=== PATIENT | female | born 1990 | race Caucasian/White ===

== ENCOUNTER 2019-11-29 15:19 | Emergency (ER) | payer OTHER, SELFPAY ==
[2019-11-29 15:33] VITALS: BP 132/80; PULSE 92; RESP 16; TEMP 36.8; O2SAT 100
--- NOTE | 2019-11-29 15:41 | ED.SKABFB ---
HPI - Skin/Abscess/Foreign Bdy General Chief complaint: Skin/Abscess/Foreign Body Stated complaint: SKIN INFECTION Time Seen by Provider: 11/29/19 15:22 Source: patient Mode of arrival: ambulatory Limitations: no limitations History of Present Illness HPI narrative: 29-year-old female presents to urgent care for complaints of possible boil to her right axilla region for the past 2 to 3 days. Patient complains of multiple areas of redness, swelling and warmth to her right axilla region. Patient reports that she has had frequent boils in the past. Patient reports her last round of antibiotic was clindamycin 2 months ago. Patient denies fever, body aches, chills, nausea, vomiting or diarrhea. MD complaint: abscess/boil Onset (ago): day(s) (2) Location: RUE (right axilla ) Severity: mild Pain Consistency: constant Relieving factors: none Context: none Associated symptoms: denies other symptoms Treatments prior to arrival: none Related Data Home Medications Medication Instructions Recorded Confirmed amitriptyline 50 mg PO HS 09/15/19 09/15/19 dextroamphetamine-amphetamine 20 mg PO DAILY 09/15/19 09/15/19 [Adderall] spironolactone 50 mg PO BID 09/15/19 09/15/19 tramadol 50 mg PO Q4H PRN 09/15/19 09/15/19 Allergies Allergy/AdvReac Type Severity Reaction Status Date / Time latex Allergy Unknown rash Verified 10/29/17 21:20 naproxen Allergy Unknown gastritis Verified 10/29/17 21:20 Review of Systems Review of Systems: All systems reviewed & are unremarkable except as noted in HPI and below Constitutional: Constitutional: Denies chills, Denies fatigue, Denies fever(s) and Denies weakness Cardiovascular: Cardiovascular: Denies chest pain and Denies radiating jaw, neck or arm pain Gastrointestinal: Gastrointestinal: Denies abdominal pain, Denies diarrhea, Denies nausea and Denies vomiting Integumentary/Breasts: Skin/Breast: Reports as per HPI Comments: Multiple areas of redness, swelling and warmth to right axillary region Neurologic: Denies dizziness, Denies syncope and Denies focal weakness PMFSH Family History Family History Father Hypertension Mother Hypertension Family history of cardiovascular disease Grandparent Family history of cardiovascular disease Cerebrovascular accident Other Family history of hypercholesterolemia Social History Social History Smoking status: Smoker, status unknown Alcohol intake: current Exam Const: General: healthy appearing, no acute distress and alert Orientation/consciousness: patient oriented x3 Neck: Neck: normal visual inspection Resp: Effort & Inspection: normal respiratory effort Auscultation: clear to auscultation bilaterally Cardio: Rate: regular rate Rhythm: regular rhythm Heart sounds: no murmurs Skin: General skin exam: normal color, no jaundice and no pallor Rashes: no rashes Other: 3 areas measuring 1 cm each in size noted to right axilla region. Areas are erythematous and warm to touch. There is no fluctuance or induration noted. There is no bruising, streaking erythema or necrotic tissue noted Neuro: General: patient oriented x3 and moves all extremities Extrem: General: normal to inspection Psych: Mental Status: mental status grossly normal Affect: normal affect Attitude: cooperative Course Vital Signs Vital signs: Vital Signs Temperature 36.8 C 11/29/19 15:33 Pulse Rate 92 11/29/19 15:33 Respiratory Rate 16 11/29/19 15:33 Blood Pressure 132/80 11/29/19 15:33 Pulse Oximetry 100 11/29/19 15:33 Temperature 36.8 C 11/29/19 15:33 Pulse Rate 92 11/29/19 15:33 Respiratory Rate 16 11/29/19 15:33 Blood Pressure 132/80 11/29/19 15:33 Pulse Oximetry 100 11/29/19 15:33 MDM - Skin/Abscess/Foreign Bdy MDM Narrative Medical decision making narrative: Patient agrees to take antibiotic as
== END 2019-11-29 15:54 | disposition home or self-care (01) ==
PROVIDERS: Emergency Provider Nurse Practitioner Family; PCP Emergency Medicine
DX: L02.411 Cutaneous abscess of right axilla (principal)
CPT/HCPCS: 99213; G0463

== ENCOUNTER 2020-03-14 07:25 | Outpatient (CLI) | payer OTHER, SELFPAY ==
--- NOTE | ~2020-03-14 | XR_ITS ---
XR knee RT 3V DATE: 03/14/2020 07:55 INDICATION: Lateral right knee pain after running injury one month ago TECHNIQUE: 3 views COMPARISON: None FINDINGS: No fracture or dislocation or joint effusion. No periosteal reaction or bone destruction. J oint spaces are well preserved. No radiopaque intra-articular loose body or chondrocalcinosis. IMPRESSION: Normal examination Reviewed, dictated and finalized at location A. IMPRESSION: Normal examination
== END 2020-03-14 07:26 | disposition home or self-care (01) ==
LOC: ANHIMG 07:30
PROVIDERS: PCP Emergency Medicine; Visit Provider Emergency Medicine
DX: M25.561 Pain in right knee (principal)
CPT/HCPCS: 73562

== ENCOUNTER 2020-05-03 11:00 | Outpatient (RCR) | payer OTHER, SELFPAY ==
--- NOTE | 2020-04-01 10:30 | PTOPEVAL ---
PHYSICAL THERAPY EVALUATION AND PLAN OF CARE Thank you for referring Valentina Nash to [facility]. I recommend Valentina participate in physical therapy 1-2x/week for 4-8 weeks. Please review, sign, date and return this plan of care JAY. I agree with and certify that the following plan of care is medically necessary. Referring Physician Date Attending Provider: Kurt Cortés MD Evaluation Diagnosis right knee pain Onset 01/2020 Cause insidious Subjective Information Started to run and exercise outside (gyms closed due to COVID-19) starting in January and started to notice the right knee getting tight and sore. There is now some clicking and it does swell on occasion. She can no longer run or squat and stair climbing causes pain/clicking. Does feel as though she is overcompensating and is feeling tightness/soreness in the left achilles now. Feels as though her back is really sore this morning. Tries to do yoga, but states she feels like she cannot get her muscles to release Self Report Pain Assessment Spine, Lumbar Reported Pain Level 3 Pain Description Aching Right Knee(s) Reported Pain Level 0 Lumbar Flexion Active [place] with knee flexion due to hamstring tightness Lumbar Extension (0-40) 30 Lumbar rotation: left stiff compared to right Gross Lower Extremity Strength unilateral heel raises: R=12/20 L=12/20 Hip Strength Bilateral Hip Flexion Strength 5 Normal Hip Extension Strength 4 Good Hip Abduction Strength 4- Good - Hip Adduction Strength 3+ Fair + Knee Strength Right Knee Flexion Strength 5 Normal Knee Extension Strength 5 Normal Knee Strength Comments functional squat: thighs just less than parallel to floor with mild deviation to left Muscle Length Testing Moses Test Shortened Muscles Short (R) Iliopsoas,Short (L) Iliopsoas,Short (R) Rectus Femoris,Short (L) Rectus Femoris Piriformis w/Hip Flexion >90 Degrees (R) Mild Tightness,(L) Moderate Tightness Left Hamstring Length -30 Query Text:(90 - 90 Position) Right Hamstring Length -25 Query Text:(90 - 90 Position) 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
--- NOTE | 2020-04-16 08:53 | PCPTNOTE ---
Patient called & cancelled scheduled appointment this date due to having to work.
--- NOTE | 2020-05-09 10:47 | PCPTNOTE ---
Patient did not show up for scheduled appointment this date.
--- NOTE | 2020-05-23 08:46 | PCPTNOTE ---
PHYSICAL THERAPY DISCHARGE NOTICE Attending Provider: Kurt Cortés MD Patient:Valentina Nash Date of :1990 Valentina has not returned for any further treatments since 05/03/2020, therefore she will be discharged at this time. Patient?s initial visit was on 04/01/2020 09:00 and she attended a total of 7 visits. The goals have not been assessed. Thank you for referring this patient to [facility]. Please review, sign, date and return this discharge summary JAY. I have been updated about the patient's current status and I agree with discharge from the above service at this time. Referring Physician Date
== END 2020-05-23 11:34 | disposition home or self-care (01) ==
LOC: ANHPT 11:00
PROVIDERS: PCP Emergency Medicine; Visit Provider Emergency Medicine
DX: M25.561 Pain in right knee (principal)
CPT/HCPCS: 97110; 97140; 97161; 97162

== ENCOUNTER 2020-12-27 13:11 | Outpatient (CLI) | payer OTHER, SELFPAY ==
--- NOTE | ~2020-12-27 | XR_ITS ---
EXAMINATION: XR lumbar spine 2-3V EXAM DATE: 12/27/2020 13:35 INDICATION: Low back pain, muscle spasm. TECHNIQUE: Lumber spine frontal, lateral, lateral L5-S1 projections for interpretation. There is no prior study for comparison. FINDINGS: There is mild thoracolumbar dextrocurvature, probably mild scoliosis. The vertebral bodies are aligned in the AP dimension. Vertebral body and disc heights are well-maintained. There is mild lumbar facet arthropathy. IUD projecting over the pelvic inlet. Sacrum, sacroiliac joints, sacral arc uate lines are intact. IMPRESSION: 1. Mild thoracolumbar dextrocurvature. 2. Mild facet arthropathy. Reviewed, dictated and finalized at location A. ATIENT RECEPTIONIST
--- NOTE | ~2020-12-27 | XR_ITS ---
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 TECHNIQUE: Each hip imaged independently (separate right and also left hip) 'frog leg' and frontal p rojections for interpretation. Frontal projection pelvis. There is no prior study for comparison. FINDINGS: No radiographic evidence of hip avascular necrosis. There are no acute fractures or disloc ations identified. There is no subcutaneous gas. The soft tissue is unremarkable. There is IUD pr ojecting just right of midline in the pelvis. IMPRESSION: Unremarkable pelvis, hip exam. Reviewed, dictated and finalized at location A. LESOFT BUSINESS ANALYST
== END 2020-12-27 13:12 | disposition home or self-care (01) ==
PROVIDERS: PCP Emergency Medicine; Visit Provider Emergency Medicine
DX: M62.830 Muscle spasm of back (principal)
CPT/HCPCS: 72100; 73521

== ENCOUNTER 2021-02-07 08:33 | Emergency (ER) | payer OTHER, SELFPAY ==
[2021-02-07 08:45] VITALS: BP 120/73; PULSE 97; RESP 16; TEMP 36.1; O2SAT 100
--- NOTE | 2021-02-07 09:01 | ED.EAR ---
HPI - Ear Problem General Chief complaint: Upper Respiratory Infection Stated complaint: SINUS CONGESITON/R EAR HEARING LOSS Time Seen by Provider: 02/07/21 08:50 Source: patient and RN notes reviewed Mode of arrival: ambulatory Limitations: no limitations History of Present Illness HPI Narrative: Patient presents today with right ear congestion and decreased hearing x2 weeks. She was treated 2 weeks ago for sinusitis with azithromycin, which did help with those symptoms, but the right ear clogging remains. She also reports some ringing. Denies pain to the ear. She has been taking Zyrtec, Sudafed, [id number] eardrops without relief. Denies drainage from the ear. MD Complaint: decreased hearing Related Data Home Medications Medication Instructions Recorded Confirmed dextroamphetamine-amphetamine 20 mg PO DAILY 09/15/19 09/15/19 [Adderall] spironolactone 50 mg PO BID 09/15/19 09/15/19 Allergies Allergy/AdvReac Type Severity Reaction Status Date / Time latex Allergy Unknown rash Verified 10/29/17 21:20 naproxen Allergy Unknown gastritis Verified 10/29/17 21:20 Review of Systems Review of Systems: Narrative: CONSTITUTIONAL: Denies body aches, fever, chills, or sweats. EYES: Denies visual changes, redness, or discharge. ENT: Denies rhinorrhea, congestion, sore throat, or otalgia.+ Right ear clogging and decreased hearing CARDIOVASCULAR: Denies chest pain, palpitations, or edema. RESPIRATORY: Denies cough or dyspnea. GASTROINTESTINAL: Denies abdominal pain, nausea, vomiting, or diarrhea. GENITOURINARY: Denies dysuria or hematuria. SKIN: Denies rash, itching, or wounds. MUSCULOSKELETAL: Denies back pain, joint pain, or myalgia. NEUROLOGIC: Denies headache, numbness, tingling, or weakness. PSYCH: Denies depression or anxiety. COUNT INCLUDES THE [facility] Past Medical History Medical History (Updated 02/07/21 @ 09:44 by Ludy Collado, MULTIMEDIA DESIGNER, ) ADHD Seasonal allergies Family History Family History Father Hypertension Mother Hypertension Family history of cardiovascular disease Grandparent Family history of cardiovascular disease Cerebrovascular accident Other Family history of hypercholesterolemia Social History Social History (Reviewed 11/29/19 @ 15:43 by LUCRETIA Strauss Smoking status: Smoker, status unknown Alcohol intake: current Comments At time of signature, I have reviewed and agree with nursing past medical, surgical, social and family history unless otherwise noted. Please see nursing chart for further information. There is no relevant family history pertinent to the presenting complaint Exam Narrative: Exam Narrative: GENERAL: Well-appearing, well-nourished, and in no acute distress. HEAD: Normocephalic, atraumatic. EYES: EOMI. No redness or drainage. Conjunctivae normal. ENT: Mucous membranes pink and moist. Nares clear. No rhinorrhea. Left TM normal. Right TM occluded with cerumen impaction. See procedure note. Throat normal. Uvula midline. NECK: Normal AROM. Supple. No lymphadenopathy. CHEST: No respiratory distress. Clear to auscultation. HEART: Regular rate and rhythm. No murmur appreciated. Normal peripheral pulses. EXTREMITIES: Normal range of motion. No edema. SKIN: Warm, dry, no rash. Capillary refill normal. Normal skin turgor. NEURO: No focal deficits. Alert and oriented x3. Gait steady. PSYCH: Normal affect. No signs of depression or anxiety. Course Vital Signs Vital signs: Vital Signs Temperature 97 F L 02/07/21 08:45 Pulse Rate 97 02/07/21 08:45 Respiratory Rate 16 02/07/21 08:45 Blood Pressure 120/73 02/07/21 08:45 Pulse Oximetry 100 02/07/21 08:45 Temperature 97 F L 02/07/21 08:45 Pulse Rate 97 02/07/21 08:45 Respiratory Rate 16 02/07/21 08:45 Blood Pressure 120/73 02/07/21 08:45 Pulse Oximetry 100 02/07/21 08:45 Reviewed Procedures Ear Wax Removal Right E
== END 2021-02-07 09:51 | disposition home or self-care (01) ==
PROVIDERS: Emergency Provider Nurse Practitioner; PCP Emergency Medicine
DX: H61.21 Impacted cerumen, right ear (principal); Z76.0 Encounter for issue of repeat prescription; F90.9 Attention-deficit hyperactivity disorder, unspecified type
CPT/HCPCS: 69209; 97530; 99212; G0463

== ENCOUNTER 2021-02-07 14:45 | Outpatient (RCR) | payer OTHER, SELFPAY ==
--- NOTE | 2021-01-08 08:55 | PTOPEVAL ---
Thank you for referring Valentina Nash to [facility].? The patient is scheduled to be seen for therapy? 2 x/week for 8 weeks. Please review, sign, date and return this plan of care JAY. I agree with and certify that the following plan of care is medically necessary. 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 Subjective Information She has been having left hip Query Text:As Reported By Patient/ and back pain on/off for the Family past 10 yrs. She noticed increased pain recently with radiating symptoms into left leg. She does not perform her HEP. She does not perform a regular fitness program. She has been to the gym in a year. She c/o limited with trunk motion, squating motions, lifting objects. She c/o increased with standing. Constantly moving to keep loose when standing. She performs ADL's and IADL's, but c/o increased pain. C/o left side of her body is weak with occasional catching of left foot. Diagnostic Tests X-Rays For This Problem Yes Previous Treatments Previous Treatments For This Problem February 2020- does not perform HEP Pain Assessment Left Anterior Hip(s) Reported Pain Level 3 Pain Description Tightness Pain Frequency Chronic,Continuous Lowest Pain Intensity 2 Greatest Pain Intensity 5 Pain Aggravating Factors ADL's,,Exercise/ Activity,Lifting,Walking, Weight Bearing/Standing Pain Behaviors Withdrawn Left Lower Back Reported Pain Level 4 Pain Description Burning,Numbness,Radiating, Shooting,Spasms,Tightness Pain Radiation Left Leg Pain Frequency Chronic,Continuous Lowest Pain Intensity 4 Greatest Pain Intensity 6 Pain Aggravating Factors ADL's,Bending,Exercise/
--- NOTE | 2021-01-17 08:54 | PCPTNOTE ---
Pt N/S for today's appointment at 08:30. Left a message reminding Pt of next appointment on 01/20/21 at 15:15 and to please call if she had any questions or was unable to make the appointment. Informed Pt this is her first no-show appointment.
--- NOTE | 2021-02-07 16:03 | PTOPEVAL ---
Thank you for referring Valentina Nash to [facility].? Valentina has attended 5 therapy visits with 4 missed visits to address her chronic back pain hip pain. She demonstrates normal trunk motion and leg strength with improved pain and function. She has been provided education and a home program, but poor compliance. She has reached maximal potential with skilled therapy services at this time with goals partially achieved. She has the necessary tools to self manage her chronic symptoms at home. Will discharge therapy services at this time. Please review, sign, date and return this discharge summary JAY. I agree with and certify that the following plan of care is medically necessary. 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 She has been having left hip and back pain on/off for the past 10 yrs. Subjective Information She denies any radiating Query Text:As Reported By Patient/ symptoms into left leg. She is Family performing HEP 4x/wk. C/o hip and back feel tight and not able to stretch. Reports today her pain is higher with increased tightness. She does feel like her back is moving better. She remains limited with all lifting task due to pain. She avoids lifting whenever possible. She can stand and sit for a hour. She denies any problems with ADL's. She is able to tolerate light cleaning. States she does not always follow good mechanics or safe pt handling at work. Pain Assessment Left Anterior Hip(s) Reported Pain Level 3 Pain Description Burning,Tightness Pain Frequency Chronic,Intermittent Lowest Pain Intensity 0 Greatest Pain Intensity 4 Pain Aggravating Factors Bending,Lifting,Prolonged Position,Walking,Weight Bearing/Standing Left Lower Back Reported Pain Level 3 Pain Description Tightness Pain Frequency Chronic,Continuous Low
== END 2021-02-10 13:34 | disposition home or self-care (01) ==
LOC: ANHPT 14:45
PROVIDERS: PCP Emergency Medicine; Visit Provider Emergency Medicine
DX: M25.552 Pain in left hip (principal); M54.5 Low back pain; M79.18 Myalgia, other site
CPT/HCPCS: 97014; 97110; 97162; 97530; G0283

== ENCOUNTER 2021-06-17 10:02 | Emergency (ER) | payer OTHER, SELFPAY ==
[2021-06-17 10:05] VITALS: BP 118/81; PULSE 96; RESP 12; TEMP 36.2; O2SAT 100
--- NOTE | 2021-06-17 10:20 | ED.FEMALEGU ---
HPI - Female Genitourinary General Chief complaint: Urogenital-Female Stated complaint: UTI SYMPTOMS Source: patient Mode of arrival: ambulatory Limitations: no limitations History of Present Illness HPI Narrative: Patient is a 30-year-old female who presents complaining of dysuria x1 day. Patient reports difficulty urinating starting yesterday afternoon, burning and frequency starting in the evening. She denies fever, chills or body aches. She reports pressure of the bladder. She denies significant medical history. Denies risk for Covid. She does not take daily medications. She denies all other complaints at this time. MD elicited complaint: dysuria and UTI Related Data Home Medications Medication Instructions Recorded Confirmed dextroamphetamine-amphetamine 20 mg PO DAILY 09/15/19 09/15/19 [Adderall] spironolactone 50 mg PO BID 09/15/19 09/15/19 Allergies Allergy/AdvReac Type Severity Reaction Status Date / Time latex Allergy Unknown rash Verified 10/29/17 21:20 naproxen Allergy Unknown gastritis Verified 10/29/17 21:20 Review of Systems Review of Systems: CONSTITUTIONAL: Denies fever, chills, or sweats. EYES: Denies visual changes, redness, or discharge. ENT: Denies rhinorrhea, congestion, sore throat, or otalgia. CARDIOVASCULAR: Denies chest pain, palpitations, or edema. RESPIRATORY: Denies cough or dyspnea. GASTROINTESTINAL: Denies abdominal pain, nausea, vomiting, or diarrhea. GENITOURINARY: Reports dysuria, frequency and urgency. SKIN: Denies rash or itching. MUSCULOSKELETAL: Denies back pain, joint pain, or myalgia. NEUROLOGIC: Denies headache, numbness, dizziness, or weakness. PSYCHIATRIC: Denies anxiety or depression. [facility] Past Medical History Medical History ADHD Seasonal allergies Family History Family History Father Hypertension Mother Hypertension Family history of cardiovascular disease Grandparent Family history of cardiovascular disease Cerebrovascular accident Other Family history of hypercholesterolemia Social History Social History Smoking status: Smoker, status unknown Alcohol intake: current Substance use: never Living arrangements: with family Occupation/Education: occupation Comments At the time of signature, I have reviewed and agree with nursing past medical, surgical, social, and family history unless otherwise noted. Please see nursing chart for further information. There is no relevant family history pertinent to the presenting complaint. Exam Narrative: GENERAL: Well-appearing, well-nourished, and in no acute distress. HEAD: Normocephalic, atraumatic. EYES: EOMI. No redness or drainage. Conjunctiva are normal. ENT: Mucous membranes pink and moist. CHEST: No respiratory distress. HEART: Regular rate and rhythm. GI: Soft, nontender without rebound, or guarding. No distention. EXTREMITIES: Normal range of motion. SKIN: Warm, dry, no rash. NEURO: No focal deficits. Alert and oriented x3. Gait steady. PSYCH: Normal affect. No signs of depression or anxiety. Course Vital Signs Vital signs: Vital Signs Temperature 36.2 C L 06/17/21 10:05 Pulse Rate 96 06/17/21 10:05 Respiratory Rate 12 06/17/21 10:05 Blood Pressure 118/81 06/17/21 10:05 Pulse Oximetry 100 06/17/21 10:05 Temperature 36.2 C L 06/17/21 10:05 Pulse Rate 96 06/17/21 10:05 Respiratory Rate 12 06/17/21 10:05 Blood Pressure 118/81 06/17/21 10:05 Pulse Oximetry 100 06/17/21 10:05 Reviewed MDM - Female Genitourinary MDM Narrative Medical decision making narrative: Patient's UA shows 3+ blood, positive nitrates and leuks. Discussed with patient most likely UTI. Patient to be started on antibiotics at this time. Patient is aware that dependent on culture, antibiotic nelda
== END 2021-06-17 10:47 | disposition home or self-care (01) ==
PROVIDERS: Emergency Provider Nurse Practitioner; PCP Emergency Medicine
DX: N39.0 Urinary tract infection, site not specified (principal); F90.9 Attention-deficit hyperactivity disorder, unspecified type
CPT/HCPCS: 81003; 87077; 87086; 87088; 87186; 99213; G0463